=== PATIENT | male | born 1995 | race Caucasian/White ===

== ENCOUNTER → 2020-08-30 16:59 | Outpatient (CLI) | payer OTHER, SELFPAY ==
--- NOTE | ~2020-08-30 | XR_ITS ---
EXAMINATION: XR wrist RT min 3V DATE: 08/30/2020 17:21 INDICATION: Right wrist pain TECHNIQUE: Posteroanterior, ulnar deviation, oblique, and lateral views of the right wrist were obtai faye. COMPARISON: None available FINDINGS: There is no fracture, dislocation, or subluxation. The bones, soft tissues, and joint space s are normal. IMPRESSION: 1. No acute osseous abnormality. Reviewed, dictated and finalized at location B.
== END ==
DX: S63.511A Sprain of carpal joint of right wrist, initial encounter (principal); S66.110A Strain of flexor muscle, fascia and tendon of right index finger at wrist and hand level, initial encounter; M99.07 Segmental and somatic dysfunction of upper extremity; X58.XXXA Exposure to other specified factors, initial encounter
CPT/HCPCS: 73110